=== PATIENT | male | born 1965 | race Two or more races ===

== ENCOUNTER 2017-07-19 05:25 | Emergency (ER) | payer OTHER ==
[2017-07-19 05:38] VITALS: BMI 28.1
[2017-07-19 05:41] VITALS: RESP 18; TEMP 98; O2SAT 100
--- NOTE | 2017-07-19 05:50 | ED PDOC ---
HPI: Psych/Substance Abuse Time Seen by Provider: 07/19/17 05:33 Chief Complaint (Nursing): Alcohol Ingestion Chief Complaint (Provider): Intoxication ED Caveat: Intoxicated History Per: EMS History/Exam Limitations: intoxication Onset/Duration Of Symptoms: Unknown Current Symptoms Are (Timing): Still Present Additional Complaint(s): 36yo male, brought to ED by EMS for evaluation as patient is intoxicated. Patient is uncooperative and refusing to answer questions; a full HPI & ROS is limited due to the patient's intoxicated state. 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 patient is verbally threatening and abusive, prompting call for EMS tonight. Past Medical History Reviewed: Historical Data, Nursing Documentation, Vital Signs Vital Signs: Last Vital Signs Temp 98.0 F 07/19/17 05:38 Pulse 108 H 07/19/17 05:38 Resp 18 07/19/17 05:38 BP 148/80 07/19/17 05:38 Pulse Ox 100 07/19/17 05:38 - Family History Family History: States: No Known Family Hx - Allergies Allergies/Adverse Reactions: Allergies Allergy/AdvReac Type Severity Reaction Status Date / Time No Known Allergies Allergy Verified 07/19/17 05:38 Review of Systems Review Of Systems: ROS cannot be obtained secondary to pt's inabilty to answer questions. (patient intoxicated) Physical Exam - Physical Exam Appears: Positive for: No Acute Distress Neck: Positive for: Supple Cardiovascular/Chest: Positive for: Regular Rate, Rhythm Respiratory: Positive for: Normal Breath Sounds. Negative for: Respiratory Distress Neurologic/Psych: Positive for: Gait (unsteady). Negative for: Alert, Oriented - Laboratory Results Result Diagrams: 07/19/17 06:25 07/19/17 06:25 - ECG O2 Sat by Pulse Oximetry: 100 (RA) Pulse Ox Interpretation: Normal Medical Decision Making Medical Decision Making: Impression: acute intoxication Plan: -- Labs -- Haldol 5 mg IM -- Ativan 2 mg IM Reassess Time: 0550 Patient not given haldol and ativan as he became cooperative with the staff. Scribe Attestation: Documented by Olivia Mckinney acting as a scribe for Micheal Wiley MD. Provider Attestation: All medical record entries made by the Scribe were at my direction and personally dictated by me. I have reviewed the chart and agree that the record accurately reflects my personal performance of the history, physical exam, medical decision making, and the department course for this patient. I have also personally directed, reviewed, and agree with the discharge instructions and disposition. Disposition - Clinical Impression Clinical Impression: Anemia, Alcohol abuse, Left against medical advice - Disposition Referrals: [facility] [Outside] Disposition Time: 07:00 Condition: STABLE Additional Instructions: You were offered and recommended hospitalization for further testing on your anemia. Recommend further testing as outpatient including HIV testing (refused in ER). Return to ER at anytime for further testing. Instructions: Abuse of Alcohol (ED), At-Risk Alcohol Use (ED), Against Medical Advice (ED), Anemia (ED) Forms: [facility] ED School/Work Excuse Print Language: UKRAINIAN
[2017-07-19 06:39] LABS: BASO % 1.5 % (0.0-2.0); EOS # 0.2 K/uL (0.0-0.7); EOS % 7.2 % (0.0-4.0); HEMATOCRIT 25.1 % (35.0-51.0); LYMPH % 39.3 % (20.0-40.0); MEAN CORPUSCULAR HEMOGLOBIN 17.4 pg (27.0-31.0); MEAN CORPUSCULAR HGB CONC 28.6 g/dL (33.0-37.0); MEAN PLATELET VOLUME 8.5 fl (7.2-11.7); MONO # 0.2 K/uL (0.0-0.8); MONO % 6.9 % (0.0-10.0); NEUT # 1.2 K/uL (1.8-7.0); NEUT % 45.1 % (50.0-75.0); NRBC % 0.2 % (0.0-0.0); WHITE BLOOD COUNT 2.6 K/uL (4.8-10.8)
[2017-07-19 06:45] LABS: ALB/GLOB RATIO 1.5 (1.0-2.1); ALCOHOL SERUM 251 mg/dl (0-10); ALKALINE PHOSPHATASE 63 U/L (38-126); ALT/SGPT 31 U/L (21-72); AST/SGOT 28 U/L (17-59); BILIRUBIN,TOTAL 0.3 mg/dl (0.2-1.3); BLOOD UREA NITROGEN 10 mg/dl (9-20); CALCIUM 8.7 mg/dL (8.4-10.2); CARBON DIOXIDE 24 mmol/L (22-30); CHLORIDE 108 mmol/L (98-107); GFR AFRICAN-AMERICAN > 60; GLUCOSE,RANDOM 101 mg/dL (75-110); POTASSIUM 4.4 MMOL/L (3.6-5.0); SODIUM 146 mmol/l (132-148); TOTAL PROTEIN 7.7 G/DL (6.3-8.2)
--- NOTE | 2017-07-19 07:02 | ED PDOC ---
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 Recommend further testing as outpatient including HIV testing (refused in ER). Return to ER at anytime for further testing. Instructions: Abuse of Alcohol (ED), At-Risk Alcohol Use (ED), Anemia (ED), Against Medical Advice (ED) Forms: [facility] ED School/Work Excuse Print Language: BELARUSIAN Against Medical Advice - AMA Patient Left Against Medical Advice: The patient declines admission to the hospital and wishes to leave the Emergency Department. This action is against my medical advice. This decision was made with informed refusal. The patient was told that admission to the hospital is necessary. Explanation of the reasons why were discussed. The risks of leaving were explained to the patient and include, but are not limited to, worsening of known or currently unknown conditions, permanent disability and from undiagnosed or untreated conditions. The patient has the capacity to make this informed decision and understands my explanation of the current medical problem and risks of leaving. The patient voluntarily accepts these risks and signed an AMA form documenting our conversation. The patient was given the opportunity to ask questions and reconsider. The patient was encouraged to return to the Emergency Department at any time for further care.
[2017-07-19 07:26] LABS: MEAN CELL VOLUME 60.9 fl (80.0-94.0)
[2017-07-19 08:16] LABS: RBC URINE 1 /hpf (0-3); URINE BILIRUBIN NEGATIVE (NEGATIVE); URINE BLOOD NEGATIVE (NEGATIVE); URINE COLOR YELLOW (YELLOW); URINE GLUCOSE (UA) NEG (Normal); URINE KETONE NEGATIVE (NEGATIVE); URINE LEUKOCYTE ESTERASE NEG Leu/uL (Negative); URINE PROTEIN NEGATIVE (NEGATIVE); URINE UROBILINOGEN 0.2-1.0 mg/dL (0.2-1.0); WBC URINE 2 /hpf (0-5)
[2017-07-19 10:54] VITALS: BP 117/71; PULSE 84
== END 2017-07-19 10:52 | disposition left against medical advice (07) ==
LOC: H.ER 05:25 → EDBD 05:25 → H.ER 10:52
DX: F10.10 Alcohol abuse, uncomplicated (principal); D64.9 Anemia, unspecified
CPT/HCPCS: 80053; 80320; 80324; 80345; 80346; 80349; 80353; 80358; 80361; 81003; 82728; 82948; 83992; 85025; 99284; G0328